=== PATIENT | male | born 1955 | race Caucasian/White ===

== ENCOUNTER → 2017-07-10 | Outpatient (CLI) | payer BC ==
--- NOTE | 2017-07-10 14:56 | US ---
EXAMINATION TYPE: US bladder DATE OF EXAM: 07/10/2017 COMPARISON: NONE CLINICAL HISTORY: Increased Frequency Urination R35.0. EXAM MEASUREMENTS: Post Void Residual Volume: 30.3 ml mL Color Doppler performed to assess ureteral jets. Bilateral Jets seen: Yes Normal Post Void Residual (less than 50ml): yes, at 30.3 ml IMPRESSION: Post void residual of 30.3 mm, within normal limits.
== END | disposition home or self-care (01) ==
LOC: RADUSWWP 13:49
PROVIDERS: ATTEND Family Medicine
DX: R35.0 Frequency of micturition (principal)
CPT/HCPCS: 76857

== ENCOUNTER 2019-06-17 08:59 | Day surgery (SDC) | payer BC, MEDICARE ==
[2019-06-15 13:24] VITALS: BMI 30.5
[~2019-06-17 08:59] MED LIST: LACTATED RINGERS 1,000 ML IV SCH; LIDOCAINE 1% 20 ML VIAL (10MG/ML) FOR IV START INTRADERMA PRN
[2019-06-17 09:48] VITALS: TEMP 98.1
[2019-06-17] MEDS ORDERED: PROPOFOL 10 MG/ML 20 ML VIAL IV ONE (10:22)
--- NOTE | 2019-06-17 10:39 | P.PCN ---
Date of Procedure: 06/17/19 Procedure(s) Performed: BRIEF HISTORY: Patient is a 64-year-old pleasant male, scheduled for an elective colonoscopy as a part of screening for colorectal neoplasia. PROCEDURE PERFORMED: Colonoscopy snare polypectomy. PREOPERATIVE DIAGNOSIS: Screening for colon cancer. IV sedation per Anesthesia. PROCEDURE: After informed consent was obtained, the patient, was brought into the endoscopy unit. IV sedation was administered by Anesthesia under continuous monitoring. Digital rectal examination was normal. Initially the Olympus CF-160 flexible video colonoscope was then inserted in the rectum, gradually advanced into the cecum without any difficulty. Careful examination was performed as the scope was gradually being withdrawn. Ileocecal valve and the appendiceal orifice were visualized and appeared normal. Prep was excellent. Mucosa of the cecum, ascending colon, transverse colon appeared normal. In the descending colon there was a 5 mm sessile polyp that was removed by snare polypectomy. Rest of the, descending colon, sigmoid colon, and rectum appeared normal. Retroflexion was performed in the rectum and small internal hemorrhoids were seen. The patient tolerated the procedure well. IMPRESSION: 5 mm descending colon polyp status post snare polypectomy Small internal hemorrhoids RECOMMENDATIONS: Findings of this examination were discussed with the patient as well as his family. He was advised to follow with the biopsy doesn't have a repeat surveillance colonoscopy in 5 years from now.
[2019-06-17 10:44] VITALS: RESP 16
[2019-06-17 10:58] VITALS: BP 147/86; PULSE 60
== END 2019-06-17 11:16 | disposition home or self-care (01) ==
LOC: ORWHC2ENDO 08:59
PROVIDERS: ATTEND Internal Medicine Gastroenterology
DX: Z12.11 Encounter for screening for malignant neoplasm of colon (principal); K64.8 Other hemorrhoids; K63.5 Polyp of colon; Z87.891 Personal history of nicotine dependence; Z79.1 Long term (current) use of non-steroidal anti-inflammatories (NSAID)
CPT/HCPCS: 88305; 45385; J2704

== ENCOUNTER → 2020-06-08 | Outpatient (CLI) | payer MEDICARE ==
--- NOTE | 2020-06-08 08:56 | MR ---
EXAMINATION TYPE: MR shoulder LT wo con DATE OF EXAM: 06/08/2020 COMPARISON: Outside left shoulder x-ray May 11, 2020. HISTORY: Left shoulder pain per order. Pain with difficulty raising arm overhead for 2 years per magali ent. TECHNIQUE: Multiplanar, multisequence imaging of the left shoulder is performed without contrast. FINDINGS: Rotator Cuff: Distal supraspinatus and infraspinatus tendons are intact. Anterior subscapularis tendo n is intact. Rotator cuff muscle bulk is preserved. Acromioclavicular Joint: Moderate spurring and capsular hypertrophy. Underlying fat plane is effaced on coronal image 9 and sagittal image 13 for reference. Distal acromion morphology unremarkable. Glenohumeral Joint: Moderate narrowing inferiorly. Synovial thinning is present. Small joint effusion . No significant spurring. Labrum: The superior labrum is blunted with increased signal consistent with degenerative tear. Biceps Tendon: The long head of biceps is in normal location within bicipital groove. Intracapsular p ortion is intact to anchor. Bone marrow signal: Subchondral cystic change at acromioclavicular joint. Prominent subchondral cysti c change involving the anterior and posterior osseous glenoid axial image 12 for reference and other levels. Other: No additional significant abnormality is appreciated. IMPRESSION: Fairly moderate to severe degenerative changes as detailed above with MRI evidence for un derlying impingement. Degenerative superior labral tear. No rotator cuff tear evident.
== END | disposition home or self-care (01) ==
LOC: RADMRIMAIN 07:22
PROVIDERS: ATTEND Orthopaedic Surgery
DX: S43.432A Superior glenoid labrum lesion of left shoulder, initial encounter (principal); M19.012 Primary osteoarthritis, left shoulder

== ENCOUNTER → 2022-09-01 | Outpatient (CLI) | payer MEDICARE ==
[2022-09-01 15:41] LABS: Basophils # (A) 0.04 X 10*3/uL (0.00-0.10); Basophils % (A) 0.5 %; Eosinophils # (A) 0.18 X 10*3/uL (0.04-0.35); Eosinophils % (A) 2.1 %; HCT 44.8 % (39.6-50.0); HGB 14.2 g/dL (13.0-17.0); Immature Grans, Automated 0.5 %; Lymphocytes # (A) 3.43 X 10*3/uL (0.90-5.00); Lymphocytes % (A) 39.8 %; MCHC 31.7 g/dL (32.0-37.0); MCV 88.4 fL (80.0-97.0); Mean Platelet Volume 11.6 fL (9.5-12.2); Monocytes # (A) 0.59 X 10*3/uL (0.20-1.00); Monocytes % (A) 6.8 %; NRBC Per 100 WBC 0 /100 WBCS (0.0-0.0); Neutrophils # (A) 4.34 X 10*3/uL (1.80-7.70); Neutrophils % (A) 50.3 %; Platelet Count 188 X 10*3/uL (140-440); RBC 5.07 X 10*6/uL (4.40-5.60); RDW 14.2 % (11.5-14.5); WBC 8.62 X 10*3/uL (4.50-10.00)
[2022-09-01 16:33] LABS: African American GFR (CKD) 95.5 (60.0-200.0); Anion Gap 7.4 mmol/L (10.00-18.00); BUN/Creat Ratio 17.13 Ratio (12.00-20.00); Blood Urea Nitrogen 16.1 mg/dL (9.0-27.0); Calcium 9.6 mg/dL (8.7-10.3); Carbon Dioxide 27.4 mmol/L (20.0-27.5); Non-African American GFR(CKD) 82.4 (60.0-200.0); Potassium 5.5 mmol/L (3.5-5.5); Prostate Specific Antigen 1.1 ng/mL (0.00-4.50)
== END | disposition home or self-care (01) ==
LOC: LABPAT 09:35
PROVIDERS: ATTEND Urology
DX: Z01.812 Encounter for preprocedural laboratory examination (principal); N40.1 Benign prostatic hyperplasia with lower urinary tract symptoms
CPT/HCPCS: 80048; 84153; 85025

== ENCOUNTER 2022-09-11 09:11 | Day surgery (SDC) | payer MEDICARE ==
[2022-09-08 11:24] VITALS: BMI 31.3
--- NOTE | 2022-09-11 06:42 | P.GSHP ---
History of Present Illness H&P Date: 09/11/22 Chief Complaint: Lower urinary tract symptoms The patient is a 67-year-old white male with a 3 year history of voiding symptoms. His primary symptoms include urinary hesitancy, weak stream, urinary frequency, and a feeling of incomplete bladder emptying. He has been verified to be emptying his bladder completely while taking tamsulosin, which he states helps. He is currently taking 0.8 mg daily, which worked better than 0.4 mg daily. Cystoscopy has shown trilobar BPH with an intravesical median lobe. Alternative BPH treatment options have been reviewed, and he has elected to undergo a TURP. - Genitourinary (Male) Genitourinary: Reports as per HPI Past Medical History Past Medical History: Prostate Disorder Additional Past Medical History / Comment(s): Generalized muscle cramps occasionally. "Third lobe growing on prostate". History of Any Multi-Drug Resistant Organisms: None Reported Past Surgical History: Appendectomy, Back Surgery, Orthopedic Surgery Additional Past Surgical History / Comment(s): Right shoulder repair, laminectomy. Past Anesthesia/Blood Transfusion Reactions: No Reported Reaction Past Psychological History: No Psychological Hx Reported Smoking Status: Former smoker Past Alcohol Use History: Occasional Additional Past Alcohol Use History / Comment(s): Quit smoking over 20 yrs ago, smoked approx 10 yrs. Past Drug Use History: Marijuana Additional Drug Use History / Comment(s): No current Marijuana use. - Past Family History Mother Family Medical History: Cancer Additional Family Medical History / Comment(s): Lung cancer. Father Family Medical History: Cancer Additional Family Medical History / Comment(s): Lung cancer. Brother(s) Family Medical History: Cancer Additional Family Medical History / Comment(s): Testicular and lymphatic cancer. Medications and Allergies Home Medications Medication Instructions Recorded Confirmed Type Cholecalciferol [Vitamin D3 (25 50 mcg PO DAILY 09/08/22 09/08/22 History Mcg = 1000 Iu)] Magnesium (Unknown Dose) 1 tab PO DAILY 09/08/22 09/08/22 History Melatonin (Unknown Dose) 1 tab PO HS PRN 09/08/22 09/08/22 History Tamsulosin [Flomax] 0.4 mg PO DAILY 09/08/22 09/08/22 History tiZANidine [Zanaflex] 4 mg PO Q8HR PRN 09/08/22 09/08/22 History Allergies Allergy/AdvReac Type Severity Reaction Status Date / Time No Known Allergies Allergy Verified 09/08/22 11:04 Surgical - Exam - General well developed, well nourished, no distress - Respiratory normal respiratory effort - Abdomen Abdomen: soft, non tender, no guarding, no rigid, no rebound Hernia: umbilical - Genitourinary normal penis with no external lesions, testicles non-tender - Rectum Rectum: normal sphincter tone, no masses, other (Prostate palpably normal) - Psychiatric oriented to time, oriented to person, oriented to place, speech is normal, memory intact Assessment and Plan (1) Benign prostatic hyperplasia with lower urinary tract symptoms Status: Acute Code(s): N40.1 - BENIGN PROSTATIC HYPERPLASIA WITH LOWER URINARY TRACT SYMP SNOMED Code(s): 345371570 Plan: Cystoscopy, transurethral resection of prostate (TURP). The procedure has been reviewed in detail with the patient. He is aware of potential risks, which include anesthesia, bleeding, infection, erectile dysfunction, urinary incont inence, retrograde ejaculation, and vesical neck contracture.
[2022-09-11] MEDS ORDERED: LACTATED RINGERS 1,000 ML IV SCH (09:28)
[2022-09-11] MEDS ORDERED: ONDANSETRON 4 MG/2 ML VIAL IVP ONE ×2 (09:28→14:00)
[2022-09-11] MEDS ORDERED: MIDAZOLAM 2 MG/2 ML VIAL IV PRN (09:28)
[2022-09-11] MEDS ORDERED: DEXAMETHASONE SOD PHOSPHATE 4 MG/ML 1 ML VIAL IV ONE (09:28)
[2022-09-11] MEDS ORDERED: LIDOCAINE 1% (10MG/ML) FOR IV START INTRADERMA PRN (09:28)
[2022-09-11] MEDS ORDERED: LIDOCAINE 2% INJ 20 MG/ML (2 ML VIAL) ONE (10:49)
[2022-09-11] MEDS ORDERED: PROPOFOL 10 MG/ML 20 ML VIAL IV ONE (10:49)
[2022-09-11] MEDS ORDERED: HYDROmorphone (PF) 1 MG/ML ONE (10:49)
[2022-09-11] MEDS ORDERED: MIDAZOLAM 2 MG/2 ML VIAL ONE (10:49)
[2022-09-11] MEDS ORDERED: fentaNYL (PF) 50 MCG/ML 2 ML AMP ONE (10:49)
--- NOTE | 2022-09-11 12:58 | P.OP ---
Date of Procedure: 09/11/22 Preoperative Diagnosis: BPH with obstruction Postoperative Diagnosis: Same Procedure(s) Performed: Cystoscopy, bipolar transurethral resection of prostate (TURP) Anesthesia: ARIEL Surgeon: Lewis Ritchie Estimated Blood Loss (ml): 50 IV fluids (ml): 800 Pathology: other (Prostate chips) Condition: stable Disposition: PACU Indications for Procedure: The patient is a 67-year-old white male with a 3 year history of voiding symptoms. His primary symptoms include urinary hesitancy, weak stream, urinary frequency, and a feeling of incomplete bladder emptying. He has been verified to be emptying his bladder completely while taking tamsulosin, which he states helps. He is currently taking 0.8 mg daily, which worked better than 0.4 mg daily. Cystoscopy has shown trilobar BPH with an intravesical median lobe. Alternative BPH treatment options have been reviewed, and he has elected to undergo a TURP. Operative Findings: Complete prostate occlusion, trilobar configuration. Description of Procedure: The patient was taken in the operating room and placed in the dorsolithotomy position. The external genitalia was prepped and draped sterilely. The 25- Turkmen [employer] resectoscope sheath was introduced into the bladder. The bladder was inspected. Both ureteral orifices were of normal anatomic location and configuration, and clear urine effluxed from both. No tumors or foreign bodies were seen. Examination of the prostate revealed complete obstruction with a trilobar configuration. Using the bipolar cutting loop, the median lobe was initially resected. Next, the lateral lobes were resected down to the surgical capsule. The floor of the prostate was then resected, proximal to the verumontanum. Next, the remaining anterior tissue was resected. The residual apical tissue was then carefully resected, with care taken to avoid injury to the external urinary sphincter. The resection was carried down to the surgical capsule in all 4 quadrants. The prostatic fossa was then carefully examined, and any areas of bleeding were controlled with electrocautery. Excellent hemostasis was attained. The resectoscope was withdrawn into the bulbous urethra. The external urinary sphincter remained intact. The prostatic fossa was open. The Prifloat evacuator was used to remove all prostate chips from the bladder. These were saved and sent for pathologic examination. The resectoscope was removed, and a 20 Turkmen [place] catheter was placed. The return was essentially clear. The patient tolerated the procedure well was taken to the recovery room in stable condition.
[2022-09-11] MEDS ORDERED: SODIUM CHLORIDE 0.9% 1,000 ML IV ONE (12:59)
[2022-09-11 13:26] VITALS: RESP 16; TEMP 97.7
[2022-09-11] MEDS: HYDROmorphone 0.5 MG/0.5 ML SYRINGE IVP PRN ×2 (13:45→14:02)
[2022-09-11] MEDS: MEPERIDINE 50 MG/ML SYRINGE IVP ONE ×2 (14:56→15:07)
[2022-09-11 15:43] VITALS: BP 149/83; PULSE 67
== END 2022-09-11 16:35 | disposition home or self-care (01) ==
LOC: OR 09:11
PROVIDERS: ATTEND Urology
DX: N40.1 Benign prostatic hyperplasia with lower urinary tract symptoms (principal); N13.8 Other obstructive and reflux uropathy; Z90.49 Acquired absence of other specified parts of digestive tract; Z98.890 Other specified postprocedural states; Z87.891 Personal history of nicotine dependence; Z80.1 Family history of malignant neoplasm of trachea, bronchus and lung; Z80.7 Family history of other malignant neoplasms of lymphoid, hematopoietic and related tissues; Z80.43 Family history of malignant neoplasm of testis; Z79.899 Other long term (current) drug therapy
CPT/HCPCS: 52601; J2250; J1100; J2175; J0690; J2405; J3010; J1170 ×2; J2704; J2001